=== PATIENT | male | born 1985 | race Two or more races ===

== ENCOUNTER 2016-12-28 21:20 | Emergency (ER) | payer SELFPAY ==
[~2016-12-28] VITALS: Ht 167.6 cm; Wt 72.6 kg
[2016-12-28 22:07] VITALS: BP 132/70
[2016-12-28] MEDS ORDERED: PHEN100C PO (22:48)
--- NOTE | 2016-12-28 22:48 | PHYS DOC ---
Past Medical History Past Medical History: Seizure Past Surgical History: No Surgical History Alcohol Use: None Drug Use: None Adult General Chief Complaint Chief Complaint: MEDICATION REFILL HPI HPI Patient is a 31 year old male presents emergency department stating that he has been out of his Dilantin for 3 days. Patient states he normally gets his Dilantin from [place] and has not been able to obtain his prescription. Patient denies having a primary care physician in the [place] to provide him his medication. Patient states that normally he'll get a headache before having seizures. He states that he believes that he is starting to get a headache although it has not fully developed yet. Patient denies any seizure activity. Review of Systems Review of Systems Constitutional: Denies fever or chills [] Eyes: Denies change in visual acuity, redness, or eye pain [] HENT: Denies nasal congestion or sore throat [] Respiratory: Denies cough or shortness of breath [] Cardiovascular: No additional information not addressed in HPI [] GI: Denies abdominal pain, nausea, vomiting, bloody stools or diarrhea [] : Denies dysuria or hematuria [] Musculoskeletal: Denies back pain or joint pain [] Integument: Denies rash or skin lesions [] Neurologic: Denies headache, focal weakness or sensory changes [] Patient presents emergency department for medication refill Allergies Allergies Allergies Coded Allergies Type Severity Reaction Last Updated Verified No Known Drug Allergies 06/24/15 No Physical Exam Physical Exam Constitutional: Well developed, well nourished, no acute distress, non-toxic appearance. [] HENT: Normocephalic, atraumatic, bilateral external ears normal, oropharynx moist, no oral exudates, nose normal. [] Eyes: PERRLA, EOMI, conjunctiva normal, no discharge. [] Neck: Normal range of motion, no tenderness, supple, no stridor. [] Cardiovascular:Heart rate regular rhythm, no murmur [] Lungs & Thorax: Bilateral breath sounds clear to auscultation [] Skin: Warm, dry, no erythema, no rash. [] Back: No tenderness Extremities: No tenderness, no cyanosis, no clubbing, ROM intact, no edema. [] Neurologic: Alert and oriented X 3, normal motor function, normal sensory function, no focal deficits noted. [] Psychologic: Affect normal, judgement normal, mood normal. [] Current Patient Data Vital Signs Vital Signs Date Time Temp Pulse Resp B/P Pulse Ox O2 Delivery O2 Flow Rate FiO2 12/28/16 22:07 98.1 62 16 97 Room Air 98.1 EKG EKG [] Radiology/Procedures Radiology/Procedures [] Course & Med Decision Making Course & Med Decision Making Pertinent Labs and Imaging studies reviewed. (See chart for details) Patient will be provided with his Dilantin which she states he takes 400 mg daily. He takes 200 and morning 200 in the evening. Patient will be provided with a physician list so he can obtain a physician here in the in the [place] when he needs medication refill. Patient will be discharged home in stable condition signs and symptoms to return back to emergency department as been provided. [] Dragon Disclaimer Dragon Disclaimer This electronic medical record was generated, in whole or in part, using a voice recognition dictation system. Departure Departure Impression: Primary Impression: Medication refill Disposition: HOME, SELF-CARE Condition: STABLE Referrals: NO PCP (PCP) Patient Instructions: Medication Refill, Emergency Department Additional Instructions: Activity as tolerated. Medication as prescribed. Call one of the primary care physicians on the list to obtain your Dilantin prescription. Return to the emergency department for signs and symptoms of become worse. Scripts Phenytoin Sodium Extended (Dilantin)100 Mg Capsule2 Cap PO BID #30 CAP Ref 2 Prov:RADHA SUN NP 12/28/16 RADHA SUN NP Dec 28, 2016 22:48
== END 2016-12-28 22:53 | disposition home or self-care (01) ==
LOC: ER 21:20
DX: Z76.0 Encounter for issue of repeat prescription (principal); R51 Headache; R56.9 Unspecified convulsions
CPT/HCPCS: 99283